=== PATIENT | female | born 1975 | race Caucasian/White ===

== ENCOUNTER 2018-07-15 19:43 | Emergency (ER) | payer OTHER ==
[2018-07-15] MEDS ORDERED: PENICILLIN V POTASSIUM 500 MG TABLET PO ONE (20:08)
[2018-07-15] MEDS ORDERED: HYDROCODONE/ACETAMINOPHEN 5-325 MG (6 TAB/ER DISP) PO PRN (20:08)
--- NOTE | 2018-07-15 20:09 | ER Document Report ---
HPI - HPI Patient complains to provider of: dental pain Time Seen by Provider: 07/15/18 20:04 Onset: Yesterday Onset/Duration: Persistent Quality of pain: Achy Severity: Severe Pain Level: 4 Context: Patient presents emergency department with complaints of upper mid and left- sided dental pain after she bit into a sandwich at [employer]. Patient has widespread dental decay. Reports she is getting no relief from the pain. Has taken Motrin without relief of symptoms. She reports she contacted Dr. perrin and has an appointment scheduled for August 14 but could not handle the pain any longer. Denies other symptoms such as fever vomiting diarrhea. He reports hot foods really irritate her mouth as well as really cold foods. She reports she was unable to sleep last night due to the pain. Associated Symptoms: None Exacerbated by: Food Relieved by: Denies Similar symptoms previously: No Recently seen / treated by doctor: No - REPRODUCTIVE Reproductive: DENIES: : Past Medical History - General Information source: Patient - Social History Smoking Status: Current Every Day Smoker Cigarette use (# per day): Yes Frequency of alcohol use: None Drug Abuse: None Family History: Reviewed & Not Pertinent Patient has suicidal ideation: No Patient has homicidal ideation: No - Medical History Medical History: Negative Surgical Hx: Negative - Immunizations Hx Diphtheria, Pertussis, Tetanus Vaccination: Yes - 2008 [facility] Provider Document - CONSTITUTIONAL Agree With Documented VS: Yes Exam Limitations: No Limitations General Appearance: WD/WN, No Apparent Distress - Nontoxic looking - INFECTION CONTROL TRAVEL OUTSIDE OF THE [place] IN LAST 30 DAYS: No - HEENT HEENT: Atraumatic, Normocephalic. negative: Conjuctival Injection Mouth Diagram: 1 - large amount of dental decay, opens mouth wide, no trismus, no ludwigs, clear voice, no erythema, no swelling, no pustules noted - NECK Neck: Supple - RESPIRATORY Respiratory: No Respiratory Distress - MUSCULOSKELETAL/EXTREMETIES Musculoskeletal/Extremeties: MAEW, FROM - NEURO Level of Consciousness: Awake, Alert, Appropriate Motor/Sensory: No Motor Deficit - DERM Integumentary: Warm, Dry Course - Re-evaluation Re-evalutation: 07/15/18 20:15 She was instructed on [place]. Also instructed on antibiotics. Instructed follow-up with the dentist as scheduled. Dictation of this chart was performed using voice recognition software; therefore, there may be some unintended grammatical errors. Discharge - Discharge Clinical Impression: Pain, dental Condition: Stable Disposition: HOME, SELF-CARE Instructions: Oral Narcotic Medication (OM), Penicillin V K (OM), Toothache (OM) Additional Instructions: *You have been evaluated for dental pain *Take medications as prescribed *Follow up with dr perrin as scheduled *Motrin as indicated *Return to ED for worsening condition, changes, needs Monitor your blood pressure. Your blood pressure was elevated today. This may be because you were anxious, in pain or because you need medication. It is important to follow up with your primary care provider for full evaluation. Prescriptions: Penicillin V Potassium [Penicillin Vk 500 mg Tablet] 500 mg PO BID #20 tablet Forms: Elevated Blood Pressure
[2018-07-15 20:10] VITALS: BP 136/92
== END 2018-07-15 20:30 | disposition home or self-care (01) ==
LOC: ER 19:43
DX: K02.9 Dental caries, unspecified (principal); K08.89 Other specified disorders of teeth and supporting structures; F17.210 Nicotine dependence, cigarettes, uncomplicated
CPT/HCPCS: 99282

== ENCOUNTER 2018-10-07 20:20 | Emergency (ER) | payer OTHER ==
[2018-10-07 20:42] VITALS: BP 126/85
[2018-10-07] MEDS ORDERED: CIPROFLOXACIN HCL/DEXAMETH OTIC DROP 7.5 ML AS ONE (20:42)
[2018-10-07] MEDS ORDERED: ACETAMINOPHEN 325 MG TABLET PO ONE (20:43)
--- NOTE | 2018-10-07 20:51 | ER Document Report ---
ED ENT - General Chief Complaint: Ear Pain Stated Complaint: LEFT EAR PAIN Time Seen by Provider: 10/07/18 20:36 Primary Care Provider: DIANA GEIGER MD [ACTIVE STAFF] - Follow up as needed Mode of Arrival: Ambulatory Information source: Patient Notes: 42-year-old female presented to ED for complaint of severe left ear pain x2 days. She states that sharp throbbing and is swelling. She states she cannot sleep due to the pain. She is alert oriented respirations regular and unlabored speaking in full sentences. 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 She does not want to discuss them. She is on a maintenance dose. She states she does work as a [employer]. TRAVEL OUTSIDE OF THE [place] IN LAST 30 DAYS: No - HPI Patient complains to provider of: Ear problem Onset: Other - 2 days Onset/Duration: Gradual, Persistent, Worse Quality of pain: Stabbing, Other - Throbbing Severity: Severe Pain Level: 5 Location of pain: Ears Associated symptoms: Ear pain, Ear drainage Similar symptoms previously: Yes Recently seen / treated by doctor: No - Related Data Allergies/Adverse Reactions: No Known Allergies Allergy (Verified 10/07/18 20:33) Past Medical History - General Information source: Patient - Social History Smoking Status: Current Every Day Smoker Cigarette use (# per day): Yes - Pack per day Smoking Education Provided: Yes - 4 minutes Frequency of alcohol use: Rare Drug Abuse: Other - Goes to the methadone clinic for "personal reasons " Occupation: [employer] Lives with: Family Family History: Reviewed & Not Pertinent Patient has suicidal ideation: No Patient has homicidal ideation: No - Past Medical History Cardiac Medical History: Reports: Hx Hypertension Pulmonary Medical History: Reports: None EENT Medical History: Reports: Ears Neurological Medical History: Reports: None Endocrine Medical History: Reports: None Renal/ Medical History: Reports: None Malignancy Medical History: Reports: None GI Medical History: Reports: None Musculoskeletal Medical History: Reports None Skin Medical History: Reports None Psychiatric Medical History: Reports: None Traumatic Medical History: Reports: None Infectious Medical History: Reports: None Surgical Hx: Negative Past Surgical History: Reports: None - Immunizations Hx Diphtheria, Pertussis, Tetanus Vaccination: Yes - 2008 Review of Systems - Review of Systems Constitutional: No symptoms reported EENT: Ear pain Cardiovascular: No symptoms reported Respiratory: No symptoms reported Gastrointestinal: No symptoms reported Genitourinary: No symptoms reported Female Genitourinary: No symptoms reported Musculoskeletal: No symptoms reported Skin: No symptoms reported Hematologic/Lymphatic: No symptoms reported Neurological/Psychological: No symptoms reported -: Yes All other systems reviewed and negative Physical Exam - Vital signs Vitals: Temp Pulse Resp BP Pulse Ox 98.3 F 86 15 126/85 H 100 10/07/18 20:40 10/07/18 20:40 10/07/18 20:40 10/07/18 20:40 10/07/18 20:40 Interpretation: Normal - General General appearance: Appears well, Alert - HEENT Head: Normocephalic, Atraumatic Eyes: Normal Pupils: PERRL Ears: Normal External canal: Erythema - left, Swollen Tympanic membrane: Normal Sinus: Normal Nasal: Normal Mouth/Lips: Normal Mucous membranes: Normal Pharynx: Normal Neck: Anterior cervical chain - Respiratory Respiratory status: No respiratory distress Chest status: Nontender Breath sounds: Normal Chest palpation: Normal - Cardiovascular Rhythm: Regular Heart sounds: Normal auscultation Murmur: No - Abdominal Inspection: Normal Distension: No distension Bowel sounds: Normal Tenderness: Nontender Organomegaly: No organomegaly - Back Back: Normal, Nontender - Extremities General upper extremity: Normal inspection, Nontender, Normal color, Normal ROM, Normal temperature General lower extremity: Normal inspection, Nontender, Normal color, Normal ROM, Normal temperature, Normal weight bearing. No: Micah's sign - Neurological Neuro grossly intact: Yes Cognition: Normal Orientation: AAOx4 Michael Coma Scale Eye Opening: Spontaneous Michael Coma Scale Verbal: Oriented Michael Coma Scale Motor: Obeys Commands Michael Coma Scale Total: 15 Speech: Normal Motor strength normal: LUE, RUE, LLE, RLE Sensory: Normal - Psychological Associated symptoms: Normal affect, Normal mood - Skin Skin Temperature: Warm Skin Moisture: Dry Skin Color: Normal Course - Vital Signs Vital signs: Temp Pulse Resp BP Pulse Ox 98.3 F 86 15 126/85 H 100 10/07/18 20:40 10/07/18 20:40 10/07/18 20:40 10/07/18 20:40 10/07/18 20:40 Discharge - Discharge Clinical Impression: Otitis externa, left Qualifiers: Otitis externa type: unspecified type Chronicity: acute Qualified Code(s): H60.502 - Unspecified acute noninfective otitis externa, left ear Condition: Stable Disposition: HOME, SELF-CARE Additional Instructions: OTITIS EXTERNA: You have otitis externa -- an infection of the outer ear canal. This can be very painful. It's sometimes called "swimmer's ear," because it often occurs after prolonged water exposure. Many things, such as earwax and dirt in the ear, can contribute to it. The usual treatment is antibiotic/antiinflammatory ear drops. Occasionally, a wick will be placed in the ear to draw in the medicine. If the infection is severe, an oral antibiotic may be prescribed. Pain medication is often needed. Avoid getting water in the ear. Outer ear infections often take longer to heal than you might expect. Some tenderness and ache in the ear may persist for about two weeks. See your physician if you fail to improve as expected. Call the doctor at once if you develop fever, increasing swelling (particularly if it makes your ear "poke out"), severe headache, stiff neck, or decreased hearing. USE OF EAR DROPS: Your ear drops won't do much good if they don't get all the way in. To help the ear drops penetrate all the way to the ear drum, use the following technique. If you encounter problems of any kind, notify the physician. (1) Lay your head sideways on a pillow. (2) Place the dropper tip just barely inside the ear canal, almost touching the bottom side of the canal. The liquid is tolerated better on the bottom of the canal. (3) Squeeze out the appropriate amount of medicine, and remove the dropper. (4) Grab the back of the ear (just behind the ear canal) between your index finger and thumb. (5) Tug up, then let the ear drop back. Repeat several times. This pumps the medicine down. (6) Wait five minutes, then place a cotton ball in the ear canal to catch and hold the medicine. USING EAR DROPS WITH A WICK: A wick may be placed in your ear. This keeps the medicine in constant contact with the ear canal. You'll need to put fresh medicine into the wick. Follow these instructions. If you encounter problems of any kind, notify the physician. (1) Lay your head sideways on a pillow. (2) Place the dropper tip so it's almost touching the wick. (3) Squeeze out the appropriate amount of medicine. (4) Wait a minute for the medicine to soak in before sitting up. (5) Wipe away any extra medicine from your ear. CIPROFLOXACIN: You have been given an antibacterial agent, ciprofloxacin (Cipro). This medicine is not related to the penicillins, sulfas, cephalosporins, or tetracyclines. It is often given to patients who are allergic to these drugs. It has been chosen for you either because other drugs are not appropriate, or because of the nature of your problem. Cipro should not be taken with antacids, as these can decrease its effectiveness. It can be taken without regard to meals. CIPRO SHOULD NOT BE TAKEN BY CHILDREN, NURSING WOMEN, OR WOMEN. Although Cipro is usually well-tolerated, common side effects can include nausea and diarrhea. Contact your doctor if you experience any unusual symptoms while on this medication, such as joint pain or swelling, shortness of breath, wheezing, faintness, or hives. USE OF ACETAMINOPHEN (Tylenol): Acetaminophen may be taken for pain relief or fever control. It's much safer than aspirin, offering a wider range of "safe" dosages. It is safe during . Some brand names are Tylenol, Panadol, Datril, Anacin 3, Tempra, and Liquiprin. Acetaminophen can be repeated every four hours. The following are maximum recommended dosages: WEIGHT Dose Drops Elixir Chewable(80mg) (LBS.) drprs=droppers tsp=teaspoon 6 40 mg 0.4 ml (1/2) 6-11 80 mg 0.8 ml (full) tsp 1 tab 12-16 120 mg 1 1/2 drprs 3/4 tsp 1 1/2 tabs 17-23 160 mg 2 drprs 1 tsp 2 tabs 24-30 240 mg 3 drprs 1 1/2 tsp 3 tabs 30-35 320 mg 2 tsp 4 tabs 36-41 360 mg 2 1/4 tsp 4 1/2 tabs 42-47 400 mg 2 1/2 tsp 5 tabs 48-53 480 mg 3 tsp 6 tabs 54-59 520 mg 3 1/4 tsp 6 1/2 tabs 60-64 560 mg 3 1/2 tsp 7 tabs 65-70 600 mg 3 3/4 tsp 7 1/2 tabs 71-76 640 mg 4 tsp 8 tabs 77-82 720 mg 4 1/2 tsp 9 tabs 83-88 800 mg 5 tsp 10 tabs >89 pounds or adults 650 mg to 900 mg Acetaminophen can be repeated every four hours. Maximum dose not to exceed 4000 mg a day. These maximum recommended dosages are slightly higher than the dosages written on the product container, but these dosages are very safe and below the toxic dosage for acetaminophen. Ibuprofen Ibuprofen is an excellent, safe drug for pain control. In addition, it has potent antiinflammatory effects which are beneficial, especially in the treatment of injuries, arthritis, or tendonitis. It's best to take ibuprofen with food. Persons with ulcer disease or allergy to aspirin should notify their physician of this before taking ibuprofen. Take the medication exactly as prescribed. Don't take additional doses unless instructed to do so by your doctor. If you develop wheezing, shortness of breath, hives, faintness, stomach pain, vomiting, or dark black stools, return for re-evaluation at once. FOLLOW-UP CARE: If you have been referred to a physician for follow-up care, call the physicians office for an appointment as you were instructed or within the next two days. If you experience worsening or a significant change in your symptoms, notify the physician immediately or return to the Emergency Department at any time for re-evaluation. Prescriptions: Ciprofloxacin HCl/Dexameth [Ciprodex Otic Suspension 7.5 ml Bottle] 4 drop LFT_EAR BID #1 bottle Forms: Elevated Blood Pressure Referrals: DIANA GEIGER MD [ACTIVE STAFF] - Follow up as needed
== END 2018-10-07 21:03 | disposition home or self-care (01) ==
LOC: ER 20:20
DX: H60.502 Unspecified acute noninfective otitis externa, left ear (principal); H92.02 Otalgia, left ear; F17.210 Nicotine dependence, cigarettes, uncomplicated; I10 Essential (primary) hypertension
CPT/HCPCS: 99282; 99406; J3490

== ENCOUNTER 2019-02-12 18:11 | Emergency (ER) | payer OTHER ==
[2019-02-12] MEDS ORDERED: ONDANSETRON 4 MG TAB.RAPDIS PO ONE (20:49)
[2019-02-12] MEDS ORDERED: OXYCODONE-ACETAMINOPHEN 5-325 MG TABLET PO ONE (20:49)
--- NOTE | 2019-02-12 20:52 | ER Document Report ---
ED Medical Screen (RME) - General Chief Complaint: Arm Pain Stated Complaint: ARM PAIN Time Seen by Provider: 02/12/19 20:46 Mode of Arrival: Ambulatory Information source: Patient Notes: 43-year-old female presents emergency department with complaints of right shoulder pain right elbow pain. Reports she fell while trying to walk her dog. Reports her tetanus is not up-to-date. Denies past medical history. Patient is very upset. Reports pain with any movement. Good radial pulse cap refill less than 3 seconds. Abrasion noted to elbow area. I have greeted and performed a rapid initial assessment of this patient. A comprehensive ED assessment and evaluation of the patient, analysis of test results and completion of the medical decision making process will be conducted by additional ED providers. Dictation of this chart was performed using voice recognition software; therefore, there may be some unintended grammatical errors. TRAVEL OUTSIDE OF THE [place] IN LAST 30 DAYS: No - Related Data Allergies/Adverse Reactions: No Known Allergies Allergy (Verified 10/07/18 20:33) Past Medical History - Past Medical History Cardiac Medical History: Reports: Hx Hypertension Renal/ Medical History: Denies: Hx Peritoneal Dialysis - Immunizations Hx Diphtheria, Pertussis, Tetanus Vaccination: Yes - 2008 Physical Exam - Vital signs Vitals: Temp Pulse Resp BP Pulse Ox 98.4 F 98 20 152/100 H 99 02/12/19 18:53 02/12/19 18:53 02/12/19 18:53 02/12/19 18:53 02/12/19 18:53 Course - Vital Signs Vital signs: Temp Pulse Resp BP Pulse Ox 98.4 F 98 20 152/100 H 99 02/12/19 20:45 02/12/19 18:53 02/12/19 20:45 02/12/19 18:53 02/12/19 20:45
--- NOTE | 2019-02-12 21:26 | RADIOLOGY REPORT (SQ) ---
3 VIEWS OF RIGHT SHOULDER EXAM DATE: 02/12/2019 8:49 PM OCCASIONAL BABYSITTER HISTORY: Fall, pain. COMPARISON: None. FINDINGS: There is a possible nondisplaced fracture of the greater tuberosity. The joint spaces are preserved. No radiopaque foreign body is identified. IMPRESSION: Possible nondisplaced fracture of the greater tuberosity. Consider CT scan for complete evaluation
--- NOTE | 2019-02-12 21:28 | RADIOLOGY REPORT (SQ) ---
EXAM DESCRIPTION: Right elbow RadLex: XR ELBOW 3 VIEWS Views: 3 CLINICAL HISTORY: 43 years Female, fall, pain COMPARISON: None. FINDINGS: Negative for acute fracture, dislocation, or radiopaque foreign body. No joint effusion. There is small reactive osteophyte at the proximal dorsal margin of the ulna. No lytic bone changes or acute periosteal reaction. IMPRESSION: 1. No acute findings.
[2019-02-13] MEDS ORDERED: IBUPROFEN 800 MG TABLET PO ONE (04:32)
--- NOTE | 2019-02-13 04:38 | ER Document Report ---
HPI - HPI Time Seen by Provider: 02/12/19 20:46 Pain Level: 5 Notes: Patient is a 43-year-old female with no significant past medical history who presents complaining of right elbow and right humerus pain status post fall about 5:30 PM last evening. Patient states that she was walking her dog when it got excited and pulled her to the ground. Patient states that she landed on her right arm. She did not hit her head or lose conscious. Patient states that she has had pain with movement to the arm since then. Most of her pain is to the proximal humerus. Patient states that she did scrape her arm on the ground, but has had a tetanus within the last 5 years. Denies drug allergies. No other concerns or complaints. She is not on any blood thinning medications. Denies any headache, fever, head injury, neck pain, changes in vision/speech/mentation/hearing, URI, sore throat, chest pain, palpitations, syncope, cough, shortness of breath, wheeze, dyspnea, abdominal pain, nausea/vomiting/diarrhea, urinary retention, dysuria, hematuria, loss of control of bowel or bladder, numbness/tingling, saddle anesthesia, muscle paralysis, or rash. - ROS Systems Reviewed and Negative: Yes All other systems reviewed and negative - REPRODUCTIVE Reproductive: DENIES: : Past Medical History - General Information source: Patient - Social History Smoking Status: Unknown if Ever Smoked Family History: Reviewed & Not Pertinent Patient has suicidal ideation: No Patient has homicidal ideation: No - Past Medical History Cardiac Medical History: Reports: Hx Hypertension Renal/ Medical History: Denies: Hx Peritoneal Dialysis - Immunizations Hx Diphtheria, Pertussis, Tetanus Vaccination: Yes - 2008 [facility] Provider Document - CONSTITUTIONAL Agree With Documented VS: Yes Notes: PHYSICAL EXAMINATION: GENERAL: Well-appearing, well-nourished and in no acute distress. HEAD: Atraumatic, normocephalic. EYES: Pupils equal round and reactive to light, extraocular movements intact, sclera anicteric, conjunctiva are normal. ENT: Nares patent and without discharge. oropharynx clear without exudates. No tonsilar hypertrophy or erythema. Moist mucous membranes. NECK: Normal range of motion, supple without lymphadenopathy. No midline tenderness. LUNGS: Breath sounds clear to auscultation bilaterally and equal. No wheezes rales or rhonchi. HEART: Regular rate and rhythm without murmurs, rubs, gallops. Musculoskeletal: Rt shoulder: No obvious swelling, erythema, deformity, ecchymosis noted. LROM to passive/active due to pain. Strength 4+/5 due to pain. + tenderness proximal to mid humerus to palp and proximal posterior forearm near elbow. FROM at the elbow/wrist/fingers otherwise. N/V intact distal. + abrasion proximal posterior forearm w/o laceration or obvious foreign body. Extremities: No cyanosis, clubbing, or edema b/l. Peripheral pulses 2+. Capillary refill less than 3 seconds. NEUROLOGICAL: Cranial nerves grossly intact. Normal speech, normal gait. Normal sensory, motor exams PSYCH: Normal mood, normal affect. SKIN: see above. Warm, Dry, normal turgor, no rashes or lesions noted. - INFECTION CONTROL TRAVEL OUTSIDE OF THE [place] IN LAST 30 DAYS: No Course - Re-evaluation Re-evalutation: 02/13/19 04:36 Patient is an afebrile, well-hydrated, 43-year-old female who presents to the ED with Rt arm pain and possible fracture to the greater tuberosity of humerus. Vitals are acceptable without any significant tachycardia, tachypnea, or hypoxia. PE is otherwise unremarkable for any neurovascular compromise, obvious tendon/ligament rupture, open fracture, septic joint. See XR result. Sling provided. Pt received pain medicine. Patient is nontoxic-appearing. No other labs or imaging warranted at this time based on H&P. Conservative measures otherwise for symptoms. Recheck with your PCM in 3-5 days. Call orthopedics tomorrow to schedule an appointment for further evaluation and management. Return to the ED with any worsening/concerning symptoms otherwise as reviewed in discharge. Patient is in agreement. - Vital Signs Vital signs: Temp Pulse Resp BP Pulse Ox 98.5 F 86 20 137/86 H 99 02/13/19 01:46 02/13/19 01:46 02/13/19 01:46 02/13/19 01:46 02/13/19 01:46 Discharge - Discharge Clinical Impression: Right arm pain Greater tuberosity of humerus fracture Qualifiers: Encounter type: initial encounter Fracture type: closed Fracture alignment: nondisplaced Laterality: right Qualified Code(s): S42.254A - Nondisplaced fracture of greater tuberosity of right humerus, initial encounter for closed fracture Condition: Stable Disposition: HOME, SELF-CARE Additional Instructions: Rest, Ice, Compression, Elevation Use sling as directed Tylenol/ibuprofen as needed F/u with your PCP in 3-5 days for a recheck Call orthopedics tomorrow to schedule an appointment for further evaluation and management Return to the ED with any worsening symptoms and/or development of fever, he adache, chest pain, palpitations, syncope, shortness of breath, trouble breathing, abdominal pain, n/v/d, muscle weakness/paralysis, numbness/tingling, swelling, redness, or other worsening symptoms that are concerning to you. Prescriptions: Ibuprofen [Motrin 800 mg Tablet] 800 mg PO Q8H PRN #15 tab PRN Reason: Tramadol HCl [Ultram 50 mg Tablet] 50 mg PO TID #15 tab Forms: Elevated Blood Pressure, Return to Work Referrals: [facility] [Provider Group] - Follow up in 3-5 days
[2019-02-13 05:25] VITALS: BP 132/91
== END 2019-02-13 05:24 | disposition home or self-care (01) ==
LOC: ER 18:11
DX: S42.254A Nondisplaced fracture of greater tuberosity of right humerus, initial encounter for closed fracture (principal); W19.XXXA Unspecified fall, initial encounter; Y93.K1 Activity, walking an animal; Y92.009 Unspecified place in unspecified non-institutional (private) residence as the place of occurrence of the external cause; I10 Essential (primary) hypertension
CPT/HCPCS: 99283; 73080; 73030; S0119

== ENCOUNTER 2019-08-15 17:19 | Emergency (ER) | payer OTHER ==
[2019-08-15 17:26] VITALS: BP 129/87
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
== END 2019-08-15 20:00 | disposition home or self-care (01) ==
LOC: ER 17:19
DX: M25.512 Pain in left shoulder (principal); M54.9 Dorsalgia, unspecified; V49.60XA Unspecified car occupant injured in collision with unspecified motor vehicles in traffic accident, initial encounter; I10 Essential (primary) hypertension
CPT/HCPCS: 99283

== ENCOUNTER 2020-03-12 15:10 | Emergency (ER) | payer OTHER ==
--- NOTE | 2020-03-12 16:14 | ER Document Report ---
ED General - General Chief Complaint: Cough Stated Complaint: CONGESTION,NO TASTE,NAUSEA TRAVEL OUTSIDE OF THE [place] IN LAST 30 DAYS: No - HPI Notes: Chief Complaint: cough, sob Historian: History obtained from patient HPI: This is a 44-year-old female complaining of cough, congestion, shortness of breath, chest pain, body aches for the past 2 to 3 days. Patient says her significant other just tested positive for Covid and a bed close contact at home and lives together. Patient denies any history of cardiac issues. She is a smoker. She did have a fever up to 101 couple days ago that is since resolved. She denies PE or DVT history, denies leg swelling, hemoptysis, pleuritic pain. No treatments tried. ROS: Constitutional: no fevers. HEENT: congestion, CV: no chest pain or palpitations. Resp: Cough, shortness of breath GI: no abdominal pain, or n/v/d. : no dysuria, hematuria, or incont. MSK: Body aches Skin: no rashes or itching. Neuro: no seizures, weakness, numbness, or confusion. Hematological: no ecchymosis or easy bleeding. Endocrine: no polyuria/polydipsia, no heat/cold intolerance. Psych: no SI/HI, AH/VH or memory loss. PMHx: Reviewed and agree as charted by RN. PSHx: Reviewed and agree as charted by RN. SOCHx: Reviewed and agree as charted by RN. FHX: No significant familial comorbid conditions directly related to patient complaint Current Medications: Reviewed and agree with the patient medications as charted by the RN. Allergies: Reviewed and agree with the listed allergies as charted by the RN Physical Exam: Vitals: Reviewed in chart as documented by RN. General: Alert and in NAD. Head: Normocephalic; atraumatic Eyes: PERRLA, Conjunctivae clear sclerae non-icteric bilat ENT: Tonsils 1+ and symmetrical, no soft palate swelling or uvular deviation Neck: trachea midline, no unilateral swelling/tenderness/lymphadenopathy CV: RRR, no M/R/G; symmetric distal pulses Resp: respirations even and unlabored, CTA bilat. GI: abd soft and nondistended. NTTP. normal BS. no masses/HSM. no CVAT bilat MSK: FROM of all extremities. No midline CTL spine tenderness/deformity Skin: warm, moist, good turgor. no rash/lesions Neuro: Alert and oriented X 4. following CN 2-12 intact. no unilateral weakness/numbness Psych: No SI/HI or AH/VH. Medical Decision-Making: Medical Decision-making/Differential Diagnosis: Consider various etiologies including but not limited to strep pharyngitis, viral pharyngitis, other pharyngitis, helen-tonsillar abscess (unlikely), retropharyngeal abscess (unlikely), Acute Suppurative Otitis media, otalgia, upper respiratory infection, viral syndrome, bronchitis, sinusitis, ect Plan-we will get Covid test, chest x-ray, EKG. If reassuring will discharge patient home to self quarantine until Covid results called. Patient is alert and oriented, O2 sats 97% on room air no respiratory distress. She is appropriate for outpatient management. Return factors discussed extensively regarding home positive pulse oximeter and signs of severe shortness of breath that should warrant return to the ER This course of action was discussed with the patient and/or family. They were amenable to this, verbalized understanding, and were without further questions. - Related Data Allergies/Adverse Reactions: No Known Allergies Allergy (Verified 10/07/18 20:33) Past Medical History - Social History Smoking Status: Unknown if Ever Smoked Family History: Reviewed & Not Pertinent Patient has homicidal ideation: No - Past Medical History Cardiac Medical History: Reports: Hx Hypertension Renal/ Medical History: Denies: Hx Peritoneal Dialysis - Immunizations Hx Diphtheria, Pertussis, Tetanus Vaccination: Yes - 2008 Physical Exam - Vital signs Vitals: Temp Pulse Resp BP Pulse Ox 98.3 F 89 16 140/87 H 96 03/12/20 15:18 03/12/20 15:18 03/12/20 15:18 03/12/20 15:18 03/12/20 15:18 Course - Vital Signs Vital signs: Temp Pulse Resp BP Pulse Ox 98.3 F 89 16 140/87 H 96 03/12/20 15:18 03/12/20 15:18 03/12/20 15:18 03/12/20 15:18 03/12/20 15:18 - Laboratory Results Laboratory Results Interpreted: 03/12/20 16:58 SARS-CoV-2 Rap RNA(RT-PCR) POSITIVE H Critical Laboratory Results Reviewed: No Critical Results - Radiology Results Critical Radiology Results Reviewed: No Critical Results - EKG Interpretation by Me EKG shows normal: Sinus rhythm Rate: Normal Rhythm: NSR [place]/QRS: No: Right axis deviation, Left axis deviation, RBBB, LBBB, IVCD, LAHB/LAFB, LPHB/LPFB, Bifasicular block Voltage: No: Increased voltage, Consistent with LVH, Consistent with RVH, Decreased voltage, Throughout, Limb leads P Waves: No: GREYSON, LAE, Absent, AV Dissociation, Other Heart block present: No: 1st Degree, Mobitz 1, Mobitz 2, CHB (3rd degree block) When compared to previous EKG there are: Previous EKG unavailable - Reviewed by ED physician, no STEMI. Discharge - Discharge Clinical Impression: Shortness of breath, Cough with exposure to COVID-19 virus Condition: Stable Disposition: HOME, SELF-CARE Additional Instructions: Follow printed instructions regarding self quarantine, home care, and return factors related to COVID-19. Take Tylenol for pain or fevers. Drink plenty of fluids to stay hydrated. Return to the ER if your condition worsens especially if you have severe shortness of breath. Take medications as prescribed. Prescriptions: Prednisone [Deltasone 20 mg Tablet] 3 tab PO DAILY 5 Days #15 tablet Referrals: CHEKO TREVINO MD [ACTIVE STAFF] - Follow up as needed
--- NOTE | 2020-03-12 16:58 | RADIOLOGY REPORT (SQ) ---
EXAM DESCRIPTION: CHEST SINGLE VIEW IMAGES COMPLETED DATE/TIME: 03/12/2020 4:45 pm REASON FOR STUDY: chest pain, sob COMPARISON: None. EXAM PARAMETERS: NUMBER OF VIEWS: One view. TECHNIQUE: Single frontal radiographic view of the chest acquired. RADIATION DOSE: NA LIMITATIONS: None. FINDINGS: LUNGS AND PLEURA: No opacities, masses or pneumothorax. No pleural effusion. MEDIASTINUM AND HILAR STRUCTURES: No masses. Contour normal. HEART AND VASCULAR STRUCTURES: Heart normal in size. Normal vasculature. BONES: No acute findings. HARDWARE: None in the chest. OTHER: No other significant finding. IMPRESSION: NO ACUTE RADIOGRAPHIC FINDING IN THE CHEST. TECHNICAL DOCUMENTATION: JOB ID: [id number] 2010 [employer]- All Rights Reserved Reading location - IP/workstation name: [email or web address]
[2020-03-12 18:35] VITALS: BP 124/86
--- NOTE | 2020-03-12 19:18 | EKG REPORT ---
SEVERITY:- NORMAL ECG - SINUS RHYTHM : Confirmed by: Melissa Manzanares MD 12-Mar-2020 19:18:19
== END 2020-03-12 18:36 | disposition home or self-care (01) ==
LOC: ER 15:10
DX: U07.1 COVID-19 (principal); R05 Cough; R06.02 Shortness of breath; R09.81 Nasal congestion; R11.0 Nausea; R07.9 Chest pain, unspecified; M79.10 Myalgia, unspecified site; R50.9 Fever, unspecified; Z20.828 Contact with and (suspected) exposure to other viral communicable diseases; F17.200 Nicotine dependence, unspecified, uncomplicated
CPT/HCPCS: 93005; 99285; 0241U; 71045; 93010; C9803